=== PATIENT | male | born 1990 | race Caucasian/White ===

== ENCOUNTER 2016-12-17 12:16 | Emergency (ER) | payer OTHER ==
[~2016-12-17] VITALS: Ht 177.8 cm; Wt 71.4 kg
[~2016-12-17 12:16] MED LIST: NAPROSYN500 MG PO; REMERON15 M2 PO; SUBOXONE 8 MG-1 EAC2 PO
[2016-12-17 13:02] LABS: HEMATOCRIT 45.8 % (38.0-50.0); MCH 31.5 PG (29.0-34.0); MCHC 34.9 G/DL (30.0-36.0); MCV 90.2 FL (86-99); MEAN PLAT.VOLUME 8.8 uM^3 (9.0-12.4); PLATELET COUNT 330 K/uL (156-360); RBC DIS.WIDTH-CV 11.6 % (11.8-14.6); RBC DIS.WIDTH-SD 38.5 % (39-53); RED BLOOD COUNT 5.08 M/uL (4.00-5.50); WHITE BLOOD COUNT 9.6 K/uL (4.1-10.2)
[2016-12-17 13:24] LABS: CHLORIDE 103 mEq/L (99-109); POTASSIUM 4.1 mEq/L (3.7-5.4); SODIUM 141 mEq/L (136-147)
[2016-12-17 13:26] LABS: GLUCOSE 88 mg/dL (70-99)
[2016-12-17 13:28] LABS: ANION GAP 14 MEQ/L (2-14)
[2016-12-17 13:30] LABS: GFR ESTIMATE (CALCULATED) > 59 mL/min/
[2016-12-17 13:31] LABS: UREA NITROGEN (BUN) 11 mg/dL (9-23)
[2016-12-17 13:39] LABS: TROP-I INTERPRETATION NEGATIVE; TROPONIN-I < 0.01 ng/mL (0.0-0.30)
[2016-12-17] MEDS ORDERED: CARAFATE1 GM PO (14:27)
[2016-12-17] MEDS ORDERED: ZANTAC300 MG PO (14:27)
[2016-12-17 14:43] LABS: AMYLASE 60 IU/L (1-118)
[2016-12-17 14:47] LABS: TOTAL BILIRUBIN 0.5 mg/dL (0.0-1.0)
[2016-12-17 14:48] LABS: ALKALINE PHOSPHATASE 75 IU/L (3-129)
[2016-12-17 14:50] LABS: DIRECT BILIRUBIN 0.2 mg/dL (0.0-0.3)
[2016-12-17 14:52] LABS: LIPASE 30 U/L (1.0-51.0)
[2016-12-17 15:06] VITALS: BP 104/73
== END 2016-12-17 15:10 | disposition home or self-care (01) ==
LOC: EME 12:16
DX: K85.90 Acute pancreatitis without necrosis or infection, unspecified (principal); F17.200 Nicotine dependence, unspecified, uncomplicated
CPT/HCPCS: 71020; 80048; 80076; 82150; 83690; 84484; 85027; 93005; 99281; 99285